=== PATIENT | male | born 1955 | race Caucasian/White ===

== ENCOUNTER 2021-04-02 12:35 | Outpatient (CLI) | payer MEDICARE | END 2021-04-02 12:36 | disposition home or self-care (01) | LOC: CSHMRI 12:35 | PROVIDERS: ATTEND Student in an Organized Health Care Education/Training Program | DX: J38.00 Paralysis of vocal cords and larynx, unspecified (principal); Z93.0 Tracheostomy status | CPT/HCPCS: 70491; 70553; 71260; 82565 ==